=== PATIENT | male | born 1980 | race Caucasian/White ===

== ENCOUNTER 2018-07-04 08:40 | Emergency (ER) | payer MEDICAID ==
[~2018-07-04] VITALS: Ht 167.6 cm; Wt 75.0 kg
[2018-07-04 08:47] VITALS: BP 124/63; PULSE 78; RESP 20; Ht 167.6 cm; Wt 75.0 kg
[2018-07-04] MEDS ORDERED: ACET-141 PO (10:36)
[2018-07-04] MEDS ORDERED: IBUP-1542 PO (10:36)
--- NOTE | 2018-07-04 10:37 | ERD ---
ER Documentation Chief Complaint Chief Complaint Complains of a left leg pain after a fall HPI 37-year-old male presents for left knee pain times 2 days. Patient states that yesterday he was running and suddenly developed pain on the right knee area. He states that he has 10 out of 10 pain with walking. There is minimal pain when he does not move his leg. No prior similar symptoms. Patient denies any fevers or chills. No trauma noted. ROS All systems reviewed and are negative except as per history of present illness. Medications Home Meds Active Scripts Acetaminophen* (Acetaminophen*) 500 MG Extra Strength Tablet, 500 MG PO Q4H PRN for PAIN, #30 TAB Prov:MANSOOR KING DO 07/04/18 Ibuprofen* (Motrin*) 600 Mg Tab, 600 MG PO Q6H PRN for PAIN AND OR ELEVATED TEMP, #30 TAB Prov:MANSOOR KING DO 07/04/18 PMhx/Soc Medical and Surgical Hx: pt denies Medical Hx, pt denies Surgical Hx Hx Alcohol Use: No Hx Substance Use: No Hx Tobacco Use: No Physical Exam Vitals Vital Signs Date Temp Pulse Resp B/P (MAP) Pulse Ox O2 O2 Flow FiO2 Time Delivery Rate 07/04/18 98.2 78 20 124/63 99 08:47 (83) Physical Exam Const: No acute distress Resp: Clear to auscultation bilaterally Cardio: Regular rate and rhythm, no murmurs, bilateral dorsalis pedis pulses intact Abd: Soft, non tender, non distended. Normal bowel sounds Skin: No petechiae or rashes Back: No midline or flank tenderness Ext: Left knee without significant swelling noted, there is 4-5 muscle strength of the left lower extremity pain with movement. Neur: Awake and alert, bilateral lower extremity sensation intact Psych: Normal Mood and Affect Procedures/MDM Medical Decision Making: Differential diagnosis includes but not limited to left knee fracture, dislocation, muscle strain, ligamentous sprain Patient appeared well on physical exam. there is no significant left knee swelling on physical examination. There is some pain with muscle strength testing. patient's left lower extremity neurovascularly intact left knee x-ray unremarkable Patient place in Mil wrap and given crutches advised regarding elevation, ice, pain meds prn and range of motion exercises with pain improves if no improvement, need to follow up with PCP and may need physical therapy. Prescription(s): Patient given prescription for motrin and tylenol. Patient advised to follow up with PCP in 1-2 days. Patient advised to return to ED for new or worsening symptoms. Patient stable on discharge from the ED. Disclaimer: Inadvertent spelling and grammatical errors are likely due to EHR/dictation software use and do not reflect on the overall quality of patient care. Also, please note that the electronic time recorded on this note does not necessarily reflect the actual time of the patient encounter. Departure Diagnosis: Primary Impression: Knee injury Encounter type: initial encounter Laterality: left Qualified Codes: S89.92XA - Unspecified injury of left lower leg, initial encounter Condition: Fair Patient Instructions: Knee Pain, Meniscus Injury (Possible) Referrals: [facility], [facility] YOU HAVE RECEIVED A MEDICAL SCREENING EXAM AND THE RESULTS INDICATE THAT YOU DO NOT HAVE A CONDITION THAT REQUIRES URGENT TREATMENT IN THE EMERGENCY DEPARTMENT. FURTHER EVALUATION AND TREATMENT OF YOUR CONDITION CAN WAIT UNTIL YOU ARE SEEN IN YOUR DOCTORS OFFICE WITHIN THE NEXT 1-2 DAYS. IT IS YOUR RESPONSIBILITY TO MAKE AN APPOINTMENT FOR FOLOW-UP CARE. IF YOU HAVE A PRIMARY DOCTOR --you should call your primary doctor and schedule an appointment IF YOU DO NOT HAVE A PRIMARY DOCTOR YOU CAN CALL OUR PHYSICIAN REFERRAL HOTLINE AT IF YOU CAN NOT AFFORD TO SEE A PHYSICIAN YOU CAN CHOSE FROM THE FOLLOWING [facility] [id number] [facility]. [facility] [address] [facility]. [facility] [address] [facility]. [facility] [address] [facility]. [facility] [address] [facility]. [facility]. [address] Additional Instructions: Call your primary care doctor TOMORROW for an appointment during the next 1-2 days.See the doctor sooner or return here if your condition worsens before your appointment time. may need to get physical therapy if pain does not improve MANSOOR KING DO Jul 04, 2018 10:37
== END 2018-07-04 10:43 | disposition home or self-care (01) ==
LOC: FTE 08:40
DX: S89.92XA Unspecified injury of left lower leg, initial encounter (principal); W18.30XA Fall on same level, unspecified, initial encounter; Y92.9 Unspecified place or not applicable
CPT/HCPCS: 73562; Z7502